=== PATIENT | female | born 1990 | race Two or more races ===

== ENCOUNTER 2018-09-20 18:20 | Emergency (ER) | payer SELFPAY ==
[~2018-09-20] VITALS: Ht 157.5 cm; Wt 68.0 kg
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
--- NOTE | 2018-09-20 18:30 | NUR ---
DR. CHRISTENSEN AT BEDSIDE FOR EVAL.
--- NOTE | 2018-09-20 18:32 | NUR ---
URINE SPECIMEN COLLECTED AND SENT TO LAB.
[2018-09-20] MEDS ORDERED: HYDROCODONE/APAP 5/325MG 1 EACH TABLET ONE (18:35)
[2018-09-20] MEDS ORDERED: ONDANSETRON 4 MG TAB.RAPDIS ONE (18:35)
[2018-09-20] MEDS ORDERED: ONDANSETRON 4 MG TAB.RAPDIS SL ONE (19:00)
[2018-09-20] MEDS ORDERED: HYDROCODONE/APAP 5/325MG 1 EACH TABLET PO ONE (19:00)
--- NOTE | 2018-09-20 19:25 | NUR ---
HARVEST MANAGER AT BEDSIDE FOR XRAY.
--- NOTE | 2018-09-20 19:31 | NUR ---
REPORT GIVEN TO CAROLYN FOR JAMIE.
--- NOTE | 2018-09-20 19:48 | NUR ---
Dr. Styles is at the bedside.
[2018-09-20] MEDS ORDERED: IV NS 0.9% 500 ML BAG IV ONE (20:00)
[2018-09-20] MEDS ORDERED: IOHEXOL-300 100 ML VIAL IV ONE (20:02)
[2018-09-20 20:14] LABS: BASOPHILS % (AUTO) 0.3 % (0.0-2.0); EOSINOPHILS % (AUTO) 0.1 % (0.0-6.0); HEMATOCRIT 38 % (33-45); HEMOGLOBIN 12.6 g/dL (11.5-14.8); LYMPHOCYTES # (AUTO) 0.9 /CMM (0.8-4.8); LYMPHOCYTES % (AUTO) 5.9 % (20.0-44.0); MEAN CORPUSCULAR HGB CONC 34 g/dl (31.0-36.0); MEAN CORPUSCULAR VOLUME 87 fL (82-100); MONOCYTES # (AUTO) 1.3 /CMM (0.1-1.30); MONOCYTES % (AUTO) 8.1 % (2.0-12.0); NEUTROPHILS # (AUTO) 13.2 /CMM (1.8-8.9); NEUTROPHILS % (AUTO) 85.6 % (43.0-81.0); PLATELET COUNT (AUTO) 261 /CMM (150-450); WHITE BLOOD COUNT (AUTO) 15.4 K/uL (4.3-11.0)
[2018-09-20 20:22] LABS: POTASSIUM 3.8 mmol/L (3.5-5.1)
[2018-09-20 20:28] LABS: ALBUMIN 3.9 g/dL (3.4-5.0); BILIRUBIN,DIRECT 0.1 mg/dL (0.0-0.2); BILIRUBIN,TOTAL 0.2 mg/dL (0.2-1.0); TOTAL PROTEIN, SERUM 7.7 g/dL (6.4-8.2)
[2018-09-20 22:20] VITALS: BP 124/72
--- NOTE | 2018-09-20 22:20 | NUR ---
IV removed. Catheter intact and site benign. Pressure and 4x4 applied to site. No bleeding noted. Patient discharged to home in stable condition. Written and verbal after care instructions given. Patient verbalizes understanding of instruction AND RX. PT TAKEN TO THE CAR VIA WC. PT REC'D ICE PACKS X2.
== END 2018-09-20 22:22 | disposition home or self-care (01) ==
LOC: ER 18:21
DX: S00.11XA Contusion of right eyelid and periocular area, initial encounter (principal); S80.02XA Contusion of left knee, initial encounter; S80.01XA Contusion of right knee, initial encounter; S00.81XA Abrasion of other part of head, initial encounter; S10.81XA Abrasion of other specified part of neck, initial encounter; S80.812A Abrasion, left lower leg, initial encounter; S80.811A Abrasion, right lower leg, initial encounter; V49.49XA Driver injured in collision with other motor vehicles in traffic accident, initial encounter; Y93.89 Activity, other specified; Y92.410 Unspecified street and highway as the place of occurrence of the external cause; Y99.8 Other external cause status
CPT/HCPCS: 36415; 73590 ×2; 74177; 80048; 80076; 84703; 85025; 85730; 86850; 99284; A4606; J7040; Q0162; Q9967